=== PATIENT | female | born 1975 | race Caucasian/White ===

== ENCOUNTER 2024-03-31 18:20 | Emergency (ER) | payer BC ==
[2024-03-31 19:04] LABS: #Basophils 0.06 10x3/uL (0.0-0.2); #Eosinphils 0.16 10x3/uL (0.0-0.5); %Basophils 0.7 % (0.0-2.0); %Eosinophils 1.8 % (0.0-6.0); %Lymphocytes 35.4 % (18.0-47.0); %Monocytes 6.9 % (0.0-10.0); Hemoglobin 14.4 g/dL (12.0-15.5); Mean Corpuscular Hemoglobin 33.7 pg (27.0-33.0); Mean Corpuscular Volume 93.7 fL (81.6-98.3); Platelet Count 341 10x3/uL (150-450); RBC Distribution Width 13.3 % (11.5-14.5); Red Blood Cell (RBC) Count 4.27 10x6/uL (3.90-5.03); White Blood Cell (WBC) Count 8.7 10x3/uL (3.5-10.5)
[2024-03-31 19:19] LABS: Bilirubin Neg (Negative); Blood, Urine 250 (Negative); Glucose, Urine (Dipstick) Normal (Negative); Ketone, Urine Negative (Negative); Leukocyte 25 (Negative); Nitrite Negative (Negative); Protein, Urine (Dipstick) 30 mg/dl (Neg-Trace); Urobilinogen Normal mg/dL (Less than 2)
[2024-03-31 19:24] LABS: ALT (SGPT) 16 U/L (8-55); AST (SGOT) 20 U/L (5-34); Albumin 4.1 g/dL (3.5-5.0); Alkaline Phosphatase 108 U/L (40-110); Anion Gap 13 mmol/L (10-20); BUN (Urea Nitrogen) 11 mg/dL (9.8-20.1); Bilirubin, Total 0.8 mg/dL (0.2-1.2); Calc. Creatinine Clearance 0 mL/min (70-130); Calcium 9.3 mg/dL (7.8-10.44); Carbon Dioxide 22 mmol/L (22-29); Chloride 109 mmol/L (98-107); Estimated GFR 87; Globulin 3.2 g/dL (2.4-3.5); Glucose 84 mg/dL (70-105); Potassium 3.8 mmol/L (3.5-5.1); Protein, Total 7.3 g/dL (6.0-8.3); Sodium 140 mmol/L (136-145)
[2024-03-31 19:26] LABS: Clarity Slightly Cloudy (Clear)
[2024-03-31] MEDS ORDERED: Ketorolac Tromethamine 30 MG (1 mL) VIAL ONE (19:35)
[2024-03-31 19:45] LABS: Bacteria/HPF Rare-Few HPF (None Seen); CAUTI Indications for Culture Pelvic or flank pain; RBC/HPF Greater than 50 HPF (0-3); Squamous Epithelial 0-3 HPF (0-3); Urine Culture Reflex No No; WBC/HPF 0-3 HPF (0-3)
[2024-03-31 19:57] LABS: Pregnancy Test - Urine (BHCG) Negative (Negative); Pregu Control Background? CLEAR/WHITE (CLR/WHITE); Pregu Control Bar Appear? YES (CONTROL BAR)
[2024-03-31] MEDS ORDERED: HYDROcodone/Acetaminophen 10/325 mg Tablet ONE (21:12)
== END 2024-03-31 22:30 | disposition home or self-care (01) ==
LOC: CSHERS 18:20
DX: D36.9 Benign neoplasm, unspecified site (principal); N83.8 Other noninflammatory disorders of ovary, fallopian tube and broad ligament
CPT/HCPCS: 36415; 76856; 80053; 81001; 81025; 83002; 83605; 85025; 96372; J1885